=== PATIENT | male | born 1965 | race Caucasian/White ===

== ENCOUNTER → 2022-07-21 | Outpatient (CLI) | payer OTHER ==
--- NOTE | 2022-07-21 15:46 | Diagnostic Imaging Report ---
EXAMINATION: CT chest without contrast (high resolution) TECHNIQUE: Prone and supine non-contrast high resolution CT images of the chest were obtained in inspiration and expiration. All CT scans use one or more of the following dose optimizing techniques: automated exposure control, MA and/or KvP adjustment based on patient size and exam type or iterative reconstruction. HISTORY: Stroke, hypertension. COMPARISON: None available. FINDINGS: No reticulations. No honeycombing. No groundglass. No architectural distortion. No bronchiectasis. There is no edema or pneumonia. No pleural effusion. No pneumothorax. There are extensive bilateral pulmonary nodules. A left lower lobe nodule measures 1.8 cm. A right lower lobe nodule measures 3.8 x 2.0 cm. There are nodules in all lobes. There is no axillary or supraclavicular lymphadenopathy. There are enlarged mediastinal lymph nodes. A subcarinal node measures 1.5 cm. An AP window lymph node measures 1.6 cm. Heart size is normal. There are mild coronary artery calcifications. No pericardial effusion. Aorta is normal in caliber. Limited views of the upper abdomen are unremarkable. There are no suspicious osseus lesions. IMPRESSION: 1. Extensive pulmonary nodules throughout all lobes most likely representing a metastatic process. 2. Mediastinal lymphadenopathy. Dictated by: Dictated on workstation # [id number]
== END ==
LOC: RAD 13:10
PROVIDERS: ATTEND Nurse Practitioner Family
DX: R91.8 Other nonspecific abnormal finding of lung field (principal); R59.1 Generalized enlarged lymph nodes; I10 Essential (primary) hypertension
CPT/HCPCS: 71250

== ENCOUNTER → 2022-08-25 | Outpatient (CLI) | payer OTHER ==
--- NOTE | 2022-08-25 17:03 | Diagnostic Imaging Report ---
PROCEDURE: CT abdomen with and without contrast. TECHNIQUE: Multiple contiguous axial CT images of the abdomen were obtained prior to and after intravenous administration of iodinated contrast. Auto Exposure Controls were utilized during the CT exam to meet ALARA standards for radiation dose reduction. INDICATION: Multiple lung masses. Evaluate for possible primary. COMPARISON: CT high risk chest dated 07/21/2022 FINDINGS: Included portions of the lung bases show multiple pulmonary nodules and masses bilaterally. CT ABDOMEN: Large mass is identified involving the inferior pole of the left kidney. It measures 9 x 11.2 x 9.6 cm. Left renal vein is difficult to evaluate, but there is no convincing evidence of tumor thrombus. Enlarged ipsilateral retroperitoneal lymph node measures 1.4 x 1.8 cm (image 42, series 3). The kidneys, adrenal glands, spleen, pancreas, and liver have a normal CT appearance. Small bowel loops are nondilated. Normal appendix is identified. There is no loculated fluid collection, free fluid, or free air. Osseous structures show no acute abnormalities. CT PELVIS: Urinary bladder is grossly unremarkable. There is no loculated fluid collection, free fluid, or free air within the pelvis. No abnormal adenopathy is seen. Osseous structures show no acute abnormalities. IMPRESSION: 1. Large left renal mass consistent with primary renal cell carcinoma. 2. Enlarged ipsilateral retroperitoneal lymph node consistent with metastatic disease. 3. Multiple nodules and masses seen within the included lung bases, also consistent with metastatic disease. Dictated by: Dictated on workstation # [id number]
== END ==
LOC: RAD 15:15
PROVIDERS: ATTEND Internal Medicine Pulmonary Disease
DX: N28.89 Other specified disorders of kidney and ureter (principal); R91.8 Other nonspecific abnormal finding of lung field; R63.4 Abnormal weight loss; R59.0 Localized enlarged lymph nodes
CPT/HCPCS: 74170